=== PATIENT | male | born 1975 | race Caucasian/White ===

== ENCOUNTER 2018-02-14 09:29 | Day surgery (SDC) | payer OTHER ==
[2018-02-11 13:37] VITALS: BMI 38.4
--- NOTE | 2018-02-14 07:35 | P.GSHP ---
History of Present Illness H&P Date: 02/14/18 CHIEF COMPLAINT: Ventral hernia HISTORY OF PRESENT ILLNESS: The patient is a 42-year-old male who presents with a history of swelling and pain along the abdomen from a hernia. Now he presents for surgical intervention. PAST MEDICAL HISTORY: Please see list. PAST SURGICAL HISTORY: Please see list. MEDICATIONS: Please see list. ALLERGIES: Please see list. SOCIAL HISTORY: No illicit drug use FAMILY HISTORY: No reports of Crohn disease or ulcerative colitis. REVIEW OF ORGAN SYSTEMS: CONSTITUTIONAL: No reports of fevers or chills. No reports of weight loss despite prior attempts. GI: Denies any blood in stools or constipation. PHYSICAL EXAM: VITAL SIGNS: Stable GENERAL: Well-developed pleasant male in no acute distress. HEENT: No scleral icterus. Extraocular movements grossly intact. Moist buccal mucosa. NECK: Supple without lymphadenopathy. CHEST: Unlabored respirations. Equal bilateral excursions. CARDIOVASCULAR: Regular rate and rhythm. Distal 2+ pulses. ABDOMEN: Soft, nondistended. Palpable defect of the abdomen. No peritoneal signs. MUSCULOSKELETAL: No clubbing, cyanosis, or edema. ASSESSMENT: 1. Ventral hernia PLAN: 1. Recommend proceeding with robotic ventral hernia repair with mesh. 2. Benefits and risks of surgical intervention was discussed including possibility of open technique. 3. DVT prophylaxis. 4. Antibiotic prophylaxis. 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 History of Any Multi-Drug Resistant Organisms: None Reported Past Surgical History: Orthopedic Surgery Additional Past Surgical History / Comment(s): 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 disease Past Anesthesia/Blood Transfusion Reactions: No Reported Reaction Smoking Status: Current some day smoker - Past Family History Mother Family Medical History: No Reported History Medications and Allergies Home Medications Medication Instructions Recorded Confirmed Type No Known Home Medications 02/11/18 02/11/18 History Allergies Allergy/AdvReac Type Severity Reaction Status Date / Time No Known Allergies Allergy Verified 02/11/18 13:31
[~2018-02-14 09:29] MED LIST: DEXAMETHASONE SOD PHOSPHATE 10 MG/ML 1 ML VIAL IV ONE; HEPARIN SODIUM,PORCINE 5,000 UNIT/ML 1 ML VIAL SQ ONE; LACTATED RINGERS 1,000 ML IV SCH; MIDAZOLAM 2 MG/2 ML VIAL IV PRN; ONDANSETRON 4 MG/2 ML VIAL IVP ONE; SCOPOLAMINE 1.5MG/72HR PATCH TRANSDERM ONE; ceFAZolin IN SWFI 2 GM/20 ML SYRINGE IVP ONE; fentaNYL (PF) 50 MCG/ML 2 ML AMP IV PRN
[2018-02-14 10:00] VITALS: TEMP 97.5
[2018-02-14] MEDS ORDERED: LIDOCAINE 1% 20 ML VIAL (10MG/ML) FOR IV START INTRADERMA ONE (10:23)
[2018-02-14] MEDS ORDERED: fentaNYL (PF) 50 MCG/ML 2 ML AMP IV ONE (10:30)
[2018-02-14] MEDS ORDERED: MIDAZOLAM 2 MG/2 ML VIAL IV ONE (10:30)
[2018-02-14] MEDS ORDERED: PROPOFOL 10 MG/ML 20 ML VIAL IV ONE (10:53)
[2018-02-14] MEDS ORDERED: LIDOCAINE 1% INJ 10MG/ML (20 ML MDV) ONE (10:53)
[2018-02-14] MEDS ORDERED: fentaNYL (PF) 50 MCG/ML 2 ML AMP ONE (10:53)
[2018-02-14] MEDS ORDERED: ROPIVACAINE 5 MG/ML 30 ML VIAL ONE (10:53)
[2018-02-14] MEDS ORDERED: ROCURONIUM BROMIDE 10 MG/ML 10 ML VIAL IV ONE (10:53)
[2018-02-14] MEDS ORDERED: GLYCOPYRROLATE 0.2 MG/ML 2 ML VIAL ONE (10:53)
[2018-02-14] MEDS ORDERED: MIDAZOLAM 2 MG/2 ML VIAL ONE (10:53)
[2018-02-14] MEDS ORDERED: NEOSTIGMINE 1 MG/ML 10 ML VIAL ONE (10:53)
[2018-02-14] MEDS ORDERED: KETOROLAC 30 MG/ML 1 ML VIAL ONE (10:53)
[2018-02-14] MEDS ORDERED: SUCCINYLCHOLINE CHLORIDE 100 MG/5 ML SYR IV ONE (10:53)
[2018-02-14] MEDS ORDERED: BUPIVACAIN-EPI 0.5%-1:200,000 30 ML VIAL SQ ONE (11:18)
--- NOTE | 2018-02-14 12:12 | P.OP ---
Date of Procedure: 02/14/18 Description of Procedure: SURGEON: YUMIKO GARCIA MD PREOPERATIVE DIAGNOSES: 1. Initial ventral hernia 2. Morbid obesity due to excess calories, BMI 38.4 3. History of chronic tobacco use POSTOPERATIVE DIAGNOSES: 1. Initial ventral hernia, incarcerated, 2 cm 2. Morbid obesity due to excess calories, BMI 38.4 3. History of chronic tobacco use OPERATION: 1. Robotic-assisted daVinci Xi laparoscopic repair of initial incarcerated incisional ventral hernia 2 cm with fascial imbrication 3 without mesh ANESTHESIA: General with local ESTIMATED BLOOD LOSS: 5 mL. SPECIMENS: Incarcerated umbilical hernia COMPLICATIONS: None. Operative Findings: 1. Incarcerated umbilical hernia with omentum, 2 cm reduced 2. Console time 19 minutes INDICATIONS: The patient is a 42-year-old male who presents with ventral hernia of the umbilicus. Surgical intervention with laparoscopic versus robotic and open techniques were reviewed. Placement of mesh was also reviewed. Benefits and risks were thoroughly described. Informed consent was obtained. DESCRIPTION OF PROCEDURE: The patient was brought into the operating room and laid in supine position. After general induction, the abdomen had been prepped and draped in standard sterile fashion. Ioban draping was also placed. Prior to incision, a timeout protocol was confirmed with surgical team regarding the patient's name including procedures to be performed. The robot was primed prior to the procedure. A field block using local anesthetis was placed along hernia site including the proposed port sites. Initial incision was made with an #11 blade along the left upper quadrant. A 0 degree 5 mm laparoscopic trocar entry was performed. Diagnostic laparoscopy demonstrated incarcerated umbilical hernia involving omentum A three 8 mm trocars were placed along the right lateral abdominal wall. Placements of the ports were 20 cm from the target anatomy and 10 cm apart. The da Madie XI robot was previously primed, prepped and draped then docked along the right side of the patient. I then sat at the robot Da Madie XI console where working arms of the robot including Bovie cautery connected to robotic scissors, vessel sealer and graspers placed by the cashier assistant. The fascia was cleaned of peritoneal fat of the hernia site. Next, hemostasis was checked with cautery. The hernia defect was oversewn using #1 StrataFix with fascial imbrication 3. A final endoscopic imaging was obtained. All instruments and pneumoperitoneum were evacuated from the abdominal cavity. The da Madie XI robot was undocked from the patient. I re-scrubbed into the case for closure of incisions. The incisions were reapproximated using 4-0 Monocryl in an interrupted subcuticular fashion. Liquid glue was applied to the skin. At the end of the procedure, needle, sponge, and instrument count had been verified correct by furniture technician. The patient was taken to the postanesthesia care unit in stable condition with abdominal binder. Plan - Discharge Summary New Discharge Prescriptions: No Action No Known Home Medications Discharge Medication List No Known Home Medications 02/11/18 [History]
[2018-02-14] MEDS ORDERED: HYDROmorphone 1 MG/ML 1 ML SYRINGE IVP ONE ×2 (12:51→13:00)
[2018-02-14] MEDS ORDERED: LACTATED RINGERS 1,000 ML IV ONE (13:11)
[2018-02-14 13:31] VITALS: RESP 16
[2018-02-14 14:26] VITALS: BP 134/62; PULSE 71
--- NOTE | 2018-02-14 14:56 | P.ONQ ---
Anesthesiology Proc Note - PNB - Peripheral Nerve Block Performed Bilateral Rectus Abdominis Single Time Out Performed: Yes Procedure Start Time: : Procedure Stop Time: :30 Indication: Acute Post-Operative Pain, Requested by physician Specifically requested for management of pain by DrJason: Verónica Abraham Sedation Type: Sedate with meaningful contact maintained Preparation: Sterile Prep Position: Supine Catheter: None Needle Types: On-Q Needle Size: 100mm (4") Needle Gauge: 20 Technique: Ultrasound Injectate: 0.5% Ropivacaine (see comment for volume) (30ml of ropivicaine plus 10cc of sterile water) Blood Aspirated: No Pain Paresthesia on Injection Noted: No Resistance on Injection: Normal Events: Uneventful and Well Tolerated
== END 2018-02-14 15:08 | disposition home or self-care (01) ==
LOC: OR 09:29
PROVIDERS: ATTEND Surgery Plastic and Reconstructive Surgery
DX: K43.6 Other and unspecified ventral hernia with obstruction, without gangrene (principal); K42.0 Umbilical hernia with obstruction, without gangrene; E66.01 Morbid (severe) obesity due to excess calories; Z68.38 Body mass index [BMI] 38.0-38.9, adult; F17.210 Nicotine dependence, cigarettes, uncomplicated
CPT/HCPCS: 88302; 49653; 64488; J2250; J1644; J1100; J2710; J2405; J2001; J3010; J1885; J1170; J2795; J0330; J2704; J0690

== ENCOUNTER → 2022-09-04 | Outpatient (CLI) | payer OTHER ==
--- NOTE | 2022-09-04 10:44 | CT ---
EXAMINATION TYPE: CT angio chest DATE OF EXAM: 09/04/2022 10:16 AM COMPARISON: HISTORY: Aneurysm of thoracic aorta without rupture CT DLP: 1519.8 mGycm Automated exposure control for dose reduction was used. CONTRAST: CTA scan of the thorax is performed without and with IV Contrast, patient injected with 100 mL of Iso vicenta 370, pulmonary embolism protocol. . FINDINGS: LUNGS: The lungs are grossly clear, there is no concerning parenchymal mass or nodule identified. T here is no pleural effusion or pneumothorax seen. The tracheobronchial tree is patent. MEDIASTINUM: There is satisfactory enhancement of the pulmonary artery and its branches, there is no CT evidence for pulmonary embolism. There are no greater than 1 cm hilar or mediastinal lymph nodes. The heart is markedly enlarged. There is maximal measurement of the aortic root proximal ascending a dionte 4.4 cm x 4.7 cm. There is a prominent origin to the left main coronary artery. Aortic arch and d escending thoracic aorta normal caliber. There is minimal calcification the level of the aortic valve and along the aortic arch. There is a trace of pericardial fluid. OTHER: Hypertrophic and degenerative changes of the spine. There is a trace of gynecomastia. Questio n tiny gallstone partially included in the [id number]. IMPRESSION: 1. There is aneurysmal dilation of the proximal ascending aorta measuring a maximal dimension of 4.4 x 4.7 cm. 2. Marked cardiomegaly
== END | disposition home or self-care (01) ==
LOC: RADCTMAIN 09:36
PROVIDERS: ATTEND Family Medicine
DX: I71.21 Aneurysm of the ascending aorta, without rupture (principal); I51.7 Cardiomegaly
CPT/HCPCS: 71275; Q9967

== ENCOUNTER → 2022-10-18 | Outpatient (CLI) | payer OTHER | END | disposition home or self-care (01) | LOC: LABWHC1 10:09 | PROVIDERS: ATTEND Physician Assistant Medical | DX: Z53.9 Procedure and treatment not carried out, unspecified reason (principal) ==

== ENCOUNTER → 2022-10-18 | Outpatient (CLI) | payer OTHER ==
[2022-10-18 15:44] LABS: African American GFR (CKD) 92.2 (60.0-200.0); Albumin 4.3 g/dL (3.8-4.9); Albumin/Globulin Ratio 1.95 (1.60-3.17); Anion Gap 11.9 mmol/L (10.00-18.00); BUN/Creat Ratio 22.09 Ratio (12.00-20.00); Blood Urea Nitrogen 24.3 mg/dL (9.0-27.0); Calcium 9.7 mg/dL (8.7-10.3); Carbon Dioxide 25.1 mmol/L (20.0-27.5); Globulin 2.2 g/dL (1.6-3.3); HDL Cholesterol 26.5 mg/dL (40.00-60.00); LDL Cholesterol,Calculated 28.5 mg/dL (0.0-131.0); Non-African American GFR(CKD) 79.5 (60.0-200.0); Potassium 4.3 mmol/L (3.5-5.5); Total Bilirubin 0.3 mg/dL (0.30-1.20); Total Protein 6.5 g/dL (6.2-8.2)
[2022-10-18 15:57] LABS: Chol/HDL Ratio 5.09 Ratio; LDL Cholesterol,Direct Reflex 76.8 mg/dL (0.00-129.00)
== END | disposition home or self-care (01) ==
LOC: LABWHC1 10:05
PROVIDERS: ATTEND Internal Medicine Interventional Cardiology
DX: I42.8 Other cardiomyopathies (principal); E78.2 Mixed hyperlipidemia
CPT/HCPCS: 36415; 80053; 80061; 83721; 83880

== ENCOUNTER → 2022-11-08 | Outpatient (CLI) | payer OTHER ==
--- NOTE | 2022-11-09 06:27 | XR ---
EXAMINATION TYPE: XR lumbosacral spine min 4V DATE OF EXAM: 11/08/2022 CLINICAL HISTORY: Chronic low back pain into bilateral lower extremities. TECHNIQUE: Frontal, lateral, and oblique images of the lumbar spine are obtained. COMPARISON: None FINDINGS: There are 5 lumbar type vertebral bodies identified. There is spina bifida defect at S1 le vernell. The lumbar spine shows satisfactory alignment without evidence of acute fracture or dislocation. Vertebral body heights and disk space heights are within normal limits. The oblique images appear within normal limits. The overlying soft tissue appears unremarkable. IMPRESSION: As above.
--- NOTE | 2022-11-09 06:32 | XR ---
EXAMINATION TYPE: XR Hip Bilateral and AP pelvis DATE OF EXAM: 11/08/2022 COMPARISON: NONE HISTORY: Pelvic pain radiates into bilateral hips. TECHNIQUE: A single AP view of the pelvis is obtained. Two views of the bilateral hips are obtained. FINDINGS: There is no acute fracture/dislocation evident in the pelvis. The sacroiliac joints appea r symmetric and unremarkable. Pubic symphysis is intact. The overlying soft tissue appears unremarkab le. Two views of bilateral hip show no acute fracture or dislocation. No focal lytic or sclerotic lesion seen in the proximal femurs bilaterally. Right hip shows mild axial joint space loss . Left hip show s moderate axial joint space loss. There is deformity of the left femoral head with loss of spherical shape. There is deformity of the proximal left femur with curvilinear alignment or coxa varus angula tion. The overlying soft tissue is unremarkable bilaterally. 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
== END | disposition home or self-care (01) ==
LOC: RADXRMAIN 16:06
PROVIDERS: ATTEND Internal Medicine Rheumatology
DX: M21.952 Unspecified acquired deformity of left thigh (principal); Q05.8 Sacral spina bifida without hydrocephalus; M54.50 Low back pain, unspecified; G89.29 Other chronic pain
CPT/HCPCS: 72110; 73521

== ENCOUNTER 2023-01-03 19:48 | Emergency (ER) | payer OTHER ==
[2023-01-03 20:14] VITALS: BP 122/71; PULSE 75; RESP 18; TEMP 98.7
[2023-01-03] MEDS ORDERED: LIDOCAINE 1% INJ 10MG/ML (20 ML MDV) SQ ONE (21:04)
[2023-01-03] MEDS ORDERED: CEPHALEXIN 500 MG CAP PO STA (21:05)
[2023-01-03] MEDS ORDERED: KETOROLAC 15 MG/ML 1 ML VIAL IM STA (21:05)
--- NOTE | 2023-01-03 22:13 | ED ---
Animal Bite HPI - General Chief Complaint: Animal Bite Stated Complaint: Bit by Dog Time Seen by Provider: 01/03/23 20:25 Source: patient Mode of arrival: ambulatory Limitations: no limitations - History of Present Illness Initial Comments: Patient is a 47 year old male who presents to the emergency department for laceration. Patient was bit in his right testicle by his dog today. He reports mild pain. No issues with urination. Tetanus is up-to-date. - Related Data Previous Rx's Medication Instructions Recorded Albuterol Inhaler [Ventolin Hfa 2 puff INHALATION RT-QID PRN each 08/24/22 Inhaler] Aspirin 81 mg PO DAILY #30 tab 08/24/22 Atorvastatin [Lipitor] 20 mg PO HS #30 tab 08/24/22 Dapagliflozin Propanediol [Farxiga] 10 mg PO DAILY #60 tab 08/24/22 Furosemide [Lasix] 40 mg PO DAILY #30 tab 08/24/22 Sacubitril/Valsartan [Entresto 24 1 each PO BID #60 tab 08/24/22 mg-26 mg Tablet] Spironolactone [Aldactone] 25 mg PO DAILY #30 tab 08/24/22 carvediloL [Coreg] 3.125 mg PO BID-W/MEALS #60 tab 08/24/22 Cephalexin [Keflex] 500 mg PO Q6HR #28 cap 01/03/23 Ibuprofen [Motrin] 800 mg PO Q8HR PRN #30 tab 01/03/23 Allergies Allergy/AdvReac Type Severity Reaction Status Date / Time No Known Allergies Allergy Verified 01/03/23 20:14 Review of Systems ROS Statement: Those systems with pertinent positive or pertinent negative responses have been documented in the HPI. ROS Other: All systems not noted in ROS Statement are negative. 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, enlarged heart, History of Any Multi-Drug Resistant Organisms: None Reported Past Surgical History: Orthopedic Surgery Additional Past Surgical History / Comment(s): 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 disease Past Anesthesia/Blood Transfusion Reactions: No Reported Reaction Past Psychological History: No Psychological Hx Reported Smoking Status: Never smoker Past Alcohol Use History: None Reported Past Drug Use History: None Reported - Past Family History Mother Family Medical History: Coronary Artery Disease (CAD) General Exam Limitations: no limitations General appearance: alert, in no apparent distress Respiratory exam: Present: normal lung sounds bilaterally. Absent: respiratory distress, wheezes, rales, rhonchi, stridor Cardiovascular Exam: Present: regular rate, normal rhythm, normal heart sounds. Absent: systolic murmur, diastolic murmur, rubs, gallop, clicks exam: Present: other (flap like laceration right scrotal sac 2 cm ) Neurological exam: Present: alert Skin exam: Present: warm, dry, intact, normal color. Absent: rash Course Vital Signs 01/03/23 20:11 Temperature 98.7 F Pulse Rate 75 Respiratory 18 Rate Blood Pressure 122/71 O2 Sat by Pulse 97 Oximetry Procedures - Laceration Laceration #1 Indication: laceration Site: other Anesthetic Used: lidocaine 1% Pre-repair: wound explored Type of Sutures: nylon Size of Sutures: 5-0 Number of Sutures: 4 Technique: simple, interrupted Patient Tolerated Procedure: well, no complications Medical Decision Making - Medical Decision Making Was pt. sent in by a medical professional or institution (Dr. PA, TETRYL BOILING TUB OPERATOR, urgent care, hospital, or [place] health care facility...) When possible be specific @ -No Did you speak to anyone other than the patient for history (EMS, parent, family, police, friend...)? What history was obtained from this source @ -No Did you review nursing and triage notes (agree or disagree)? Why? @ -I reviewed and agree with nursing and triage notes Were old charts reviewed (outside hosp., previous admission, EMS record, old EKG, old radiological studies, urgent care reports/EKG's, [place] health care facility records)? Report findings @ -No old charts were reviewed Differential Diagnosis (chest pain, altered mental status, abdominal pain women, abdominal pain men, vaginal bleeding, weakness, fever, dyspnea, syncope, headache, dizziness, GI bleed, back pain, seizure, CVA, palpatations, mental health)? @ -Laceration, abrasion, puncture wound. This list is not meant to be all- inclusive EKG interpreted by me (3pts min.). @ -As above X-rays interpreted by me (1pt min.). @ -None done CT interpreted by me (1pt min.). @ -None done U/S interpreted by me (1pt. min.). @ -None done What testing was considered but not performed or refused? (CT, X-rays, U/S, labs)? Why? @ -None What meds were considered but not given or refused? Why? @ -None Did you discuss the management of the patient with other professionals (professionals i.e. , PA, TETRY[employer] BOILING TUB OPERATOR, lab, RT, psych nurse, professor of social work, supervising appraiser, teacher, property disposal officer, family independence case manager)? Give summary @ -[No] Was smoking cessation discussed for >3mins.? @ -[No] Was critical care preformed (if so, how long)? @ -[No] Were there social determinants of health that impacted care today? How? (Homelessness, low income, unemployed, alcoholism, drug addiction, transportation, low edu. Level, literacy, decrease access to med. care, longterm, rehab)? @ -[No] Was there de-escalation of care discussed even if they declined (Discuss DNR or withdrawal of care, Hospice)? DNR status @ -[No] What co-morbidities impacted this encounter? (DM, HTN, Smoking, COPD, CAD, Cancer, CVA, ARF, Chemo, Hep., AIDS, mental health diagnosis, sleep apnea, morbid obesity)? @ -[None] Was patient admitted / discharged? Hospital course, mention meds given and route, prescriptions, significant lab abnormalities, going to OR and other pertinent info. @ -Patient has flap-like laceration to right scrotal sac. The testicle is not involved. It is well approximated with 4 sutures. Tetanus update not indicated. Discussed wound care in detail. Patient placed on antibiotics prophylactically. Undiagnosed new problem with uncertain prognosis? @ -[No] Drug Therapy requiring intensive monitoring for toxicity (Heparin, Nitro, Insulin, Cardizem)? @ -[No] Were any procedures done? @ -[No] Diagnosis/symptom? @ -Laceration Acute, or Chronic, or Acute on Chronic? @ -acute Uncomplicated (without systemic symptoms) or Complicated (systemic symptoms)? @ -uncomplicated Side effects of treatment? @ -[No] Exacerbation, Progression, or Severe Exacerbation? @ -[No] Poses a threat to life or bodily function? How? (Chest pain, [place], [place], pneumonia, PE, COPD, DKA, ARF, appy, cholecystitis, CVA, Diverticulitis, Homicidal, Suicidal, threat to staff... and all critical care pts) @ -[No] Dr. Ignacio is my attending Disposition Clinical Impression: Dog bite, Laceration Disposition: HOME SELF-CARE Condition: Good Instructions (If sedation given, give patient instructions): Animal Bite (ED), Care For Your Stitches (ED), Laceration (ED) Additional Instructions: Leave wound uncovered. Keep wound clean and dry. Wash with a mild soap. Take Tylenol or anti-inflammatories such as Motrin for pain. Follow-up with primary care provider in 1-2 days. Return for suture removal in 7-10 days. Report back to the emergency department if you experience new, concerning, or worsening symptoms. Prescriptions: Cephalexin [Keflex] 500 mg PO Q6HR #28 cap Ibuprofen [Motrin] 800 mg PO Q8HR PRN #30 tab PRN Reason: Pain Is patient prescribed a controlled substance at d/c from ED?: No Referrals: Otis Garcia MD [Primary Care Provider] - 1-2 days
== END 2023-01-03 22:27 | disposition home or self-care (01) ==
LOC: EC 19:48
DX: S31.31XA Laceration without foreign body of scrotum and testes, initial encounter (principal); I50.9 Heart failure, unspecified; W54.0XXA Bitten by dog, initial encounter
CPT/HCPCS: 99283; 96372; 55100; J2001; J1885

== ENCOUNTER 2023-01-09 22:49 | Observation (INO) | payer OTHER ==
[2023-01-09] MEDS ORDERED: IBUPROFEN 400 MG TAB PO PRN (23:40)
[2023-01-09] MEDS ORDERED: KETOROLAC 15 MG/ML 1 ML VIAL IVP PRN (23:40)
[2023-01-09] MEDS ORDERED: MORPHINE SULFATE 4 MG/ML SYRINGE IV PRN (23:40)
[2023-01-09] MEDS ORDERED: AMPICILLIN-SULBACTAM 3 GM in SODIUM CHLORIDE 0.9% 100 ML IVPB STA (23:40)
[2023-01-09] MEDS ORDERED: NALOXONE 0.4 MG/ML 1 ML VIAL IV PRN (23:40)
--- NOTE | 2023-01-09 23:40 | ED ---
Skin/Abscess/FB HPI - General Chief complaint: Skin/Abscess/Foreign Body Stated complaint: Cellulitis right hand, swelling Time Seen by Provider: 01/09/23 23:07 Source: patient Mode of arrival: ambulatory Limitations: no limitations - History of Present Illness Initial comments: 47-year-old male presenting with chief complaint of pain and swelling to the right hand. Patient was bitten by his dog yesterday. He states that he was given a shot of Rocephin at the doctor's office and started on amoxicillin, he is unsure if it is really augmentin. Patient tells me he was also bitten on the same hand by the same dog last week. Today he noticed a significant increase in the swelling which is also spreading up the hand and into the wrist. He is having difficulty straightening the fingers. No numbness or tingling. No fevers or chills. No nausea or vomiting. Patient had a CT of the hand today ordered by his PCP which showed signs of cellulitis as well as subcutaneous air consistent with recent dog bite. - Related Data Previous Rx's Medication Instructions Recorded Albuterol Inhaler [Ventolin Hfa 2 puff INHALATION RT-QID PRN each 08/24/22 Inhaler] Aspirin 81 mg PO DAILY #30 tab 08/24/22 Atorvastatin [Lipitor] 20 mg PO HS #30 tab 08/24/22 Dapagliflozin Propanediol [Farxiga] 10 mg PO DAILY #60 tab 08/24/22 Furosemide [Lasix] 40 mg PO DAILY #30 tab 08/24/22 Sacubitril/Valsartan [Entresto 24 1 each PO BID #60 tab 08/24/22 mg-26 mg Tablet] Spironolactone [Aldactone] 25 mg PO DAILY #30 tab 08/24/22 carvediloL [Coreg] 3.125 mg PO BID-W/MEALS #60 tab 08/24/22 Cephalexin [Keflex] 500 mg PO Q6HR #28 cap 01/03/23 Ibuprofen [Motrin] 800 mg PO Q8HR PRN #30 tab 01/03/23 Allergies Allergy/AdvReac Type Severity Reaction Status Date / Time No Known Allergies Allergy Verified 01/09/23 23:06 Review of Systems ROS Statement: Those systems with pertinent positive or pertinent negative responses have been documented in the HPI. ROS Other: All systems not noted in ROS Statement are negative. 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, enlarged heart, History of Any Multi-Drug Resistant Organisms: None Reported Past Surgical History: Orthopedic Surgery Additional Past Surgical History / Comment(s): 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 disease Past Anesthesia/Blood Transfusion Reactions: No Reported Reaction Past Psychological History: No Psychological Hx Reported Smoking Status: Never smoker Past Alcohol Use History: None Reported Past Drug Use History: None Reported - Past Family History Mother Family Medical History: Coronary Artery Disease (CAD) General Exam Limitations: no limitations General appearance: alert, in no apparent distress Head exam: Present: atraumatic, normocephalic, normal inspection Eye exam: Present: normal appearance Neck exam: Present: normal inspection, full ROM Respiratory exam: Present: normal lung sounds bilaterally. Absent: respiratory distress, wheezes, rales, rhonchi, stridor Cardiovascular Exam: Present: regular rate, normal rhythm, normal heart sounds. Absent: systolic murmur, diastolic murmur, rubs, gallop, clicks Right Hand Wrist exam: Present: tenderness, swelling, abrasion. Absent: full ROM Neurological exam: Present: alert, oriented X3, CN II-XII intact Psychiatric exam: Present: normal affect, normal mood Skin exam: Present: warm, dry, other (There are healing puncture wounds across the right hand) Course Vital Signs 01/09/23 23:02 Temperature 98.1 F Pulse Rate 65 Respiratory 22 Rate Blood Pressure 123/67 O2 Sat by Pulse 96 Oximetry Medical Decision Making - Medical Decision Making Was pt. sent in by a medical professional or institution (Dr. PA, CALL CENTER OPERATOR, urgent care, hospital, or residential...) When possible be specific @ -Advised to come in by his PCP Did you speak to anyone other than the patient for history (EMS, parent, family, police, friend...)? What history was obtained from this source @ -No Did you review nursing and triage notes (agree or disagree)? Why? @ -I reviewed and agree with nursing and triage notes Were old charts reviewed (outside hosp., previous admission, EMS record, old EKG, old radiological studies, urgent care reports/EKG's, residential records)? Report findings @ -Patient had an outpatient CT of the hand performed today, showed signs of cellulitis and subcutaneous air consistent with dog bite Differential Diagnosis (chest pain, altered mental status, abdominal pain women, abdominal pain men, vaginal bleeding, weakness, fever, dyspnea, syncope, headache, dizziness, GI bleed, back pain, seizure, CVA, palpatations, mental health, musculoskeletal)? @ -Differential Musculoskeletal Muscular strain, contusion, ligament sprain, fracture, arthritis, septic arthritis, bursitis, cellulitis, muscle spasm, nerve compression, DVT, arterial occlusion, herpes zoster, electrolyte abnormality, tumor.... This is not meant to be in all inclusive list EKG interpreted by me (3pts min.). @ -As above X-rays interpreted by me (1pt min.). @ -None done CT interpreted by me (1pt min.). @ -None done U/S interpreted by me (1pt. min.). @ -None done What testing was considered but not performed or refused? (CT, X-rays, U/S, labs)? Why? @ -None What meds were considered but not given or refused? Why? @ -None Did you discuss the management of the patient with other professionals (professionals i.e. , PA, CALL CENTER OPERATOR, lab, RT, psych nurse, manager social work, nurse substance abuse, teacher, bsa/aml compliance officer, heel caser)? Give summary @ -No Was smoking cessation discussed for >3mins.? @ -No Was critical care preformed (if so, how long)? @ -No Were there social determinants of health that impacted care today? How? (Homelessness, low income, unemployed, alcoholism, drug addiction, transportation, low edu. Level, literacy, decrease access to med. care, group home, rehab)? @ -No Was there de-escalation of care discussed even if they declined (Discuss DNR or withdrawal of care, Hospice)? DNR status @ -No What co-morbidities impacted this encounter? (DM, HTN, Smoking, COPD, CAD, Cancer, CVA, ARF, Chemo, Hep., AIDS, mental health diagnosis, sleep apnea, morbid obesity)? @ -None Was patient admitted / discharged? Hospital course, mention meds given and route, prescriptions, significant lab abnormalities, going to OR and other pertinent info. @ -47-year-old male presenting with chief complaint of pain and swelling to the right hand after a dog bite that occurred yesterday. Patient states that throughout the day he had significant increase in swelling and pain, pain and swelling is spreading up into his wrist and he is having difficulty straightening the fingers. He is on what is assumed to be Augmentin although he is not sure. Given the significant change in swelling throughout the day patient will be admitted for dog bite cellulitis to the hand for IV antibiotics and evaluation by hand surgery. Patient is agreeable with this plan. I discussed this case with my attending Dr. Flood. Undiagnosed new problem with uncertain prognosis? @ -No Drug Therapy requiring intensive monitoring for toxicity (Heparin, Nitro, Insulin, Cardizem)? @ -No Were any procedures done? @ -No Diagnosis/symptom? @ -Dog bite cellulitis Acute, or Chronic, or Acute on Chronic? @ -Acute Uncomplicated (without systemic symptoms) or Complicated (systemic symptoms)? @ -Complicated Side effects of treatment? @ -No Exacerbation, Progression, or Severe Exacerbation? @ -No Poses a threat to life or bodily function? How? (Chest pain, USA, OR, pneumonia, PE, COPD, DKA, ARF, appy, cholecystitis, CVA, Diverticulitis, Homicidal, Suicidal, threat to staff... and all critical care pts) @ -Poses threat to hand function if proper treatment is not undergone Disposition Clinical Impression: Cellulitis, Dog bite Disposition: ADMITTED IP TO THIS [facility] Condition: Fair Referrals: Otis Garcia MD [Primary Care Provider] - 1-2 days Time of Disposition: 23:39 Decision to Admit Reason: Admit from EC Decision Date: 01/09/23 Decision Time: 23:39
[2023-01-10 00:28] LABS: Basophils % (A) 0 %; Eosinophils # (A) 0.1 k/uL (0-0.7); Eosinophils % (A) 2 %; HCT 44.8 % (39.0-53.0); HGB 15.2 gm/dL (13.0-17.5); Lymphocytes # (A) 2.8 k/uL (1.0-4.8); Lymphocytes % (A) 31 %; MCH 30.9 pg (25.0-35.0); MCHC 33.9 g/dL (31.0-37.0); MCV 91.3 fL (80.0-100.0); Mean Platelet Volume 9.3; Monocytes # (A) 0.6 k/uL (0-1.0); Monocytes % (A) 7 %; Neutrophils # (A) 5.3 k/uL (1.3-7.7); Neutrophils % (A) 59 %; Platelet Count 240 k/uL (150-450); RDW 13.9 % (11.5-15.5)
[2023-01-10 00:29] LABS: ALT 30 U/L (4-49); AST 31 U/L (17-59); African American GFR (CKD) >90 (>60 ml/min/1.73 sqM); Albumin 4.4 g/dL (3.5-5.0); Alkaline Phosphatase 74 U/L (38-126); Anion Gap 12 mmol/L; Blood Urea Nitrogen 21 mg/dL (9-20); Calcium 9.9 mg/dL (8.4-10.2); Carbon Dioxide 25 mmol/L (22-30); Chloride 102 mmol/L (98-107); Glucose 93 mg/dL (74-99); Non-African American GFR(CKD) 80 (>60 ml/min/1.73 sqM); Potassium 3.8 mmol/L (3.5-5.1); Sodium 139 mmol/L (137-145); Total Bilirubin 1.1 mg/dL (0.2-1.3); Total Protein 7.5 g/dL (6.3-8.2)
[2023-01-10] MEDS ORDERED: ALBUTEROL NEBULIZED 2.5 MG/3 ML INHALATION PRN (04:37)
--- NOTE | 2023-01-10 04:49 | P.HPIM ---
History of Present Illness H&P Date: 01/10/23 Chief Complaint: right hand swelling 47-year-old male with systolic congestive heart failure recently diagnosed He is coming in for right-hand swelling secondary to a PET dog bite (the dog is not rabid ) which happened 3 days ago he reports that he was evaluated by his do ctor who gave him a shot of Rocephin and amoxicillin. However he noticed that the swelling is getting worse, this is his second bite first one happened about a week ago. Today he noticed that he can't make a fist or stretches hand due to pain and swelling. He denies any fevers or chills. Denies any numbness tingling over the hand Patient knows the the animal which is a PET that's vaccinated. And currently is not rabid CAT scan was done as an outpatient confirmed possibility of cellulitis with gas- forming organism mainly over the dorsum of the hand without any underlying acute osseous abnormalities review of systems Pertinent positives as noted in HPI. All other systems were reviewed and are negative on exam Constitutional: No acute distress, conversant, pleasant Eyes: Anicteric sclerae, moist conjunctiva, Pupils equal round reactive to light ENMT: NC/AT Oropharynx clear, no erythema, or exudates Neck: Supple, no masses, or JVD No carotid bruits No thyromegaly Lungs: Clear to auscultation Clear to percussion Normal respiratory effort, no accessory muscle use Cardiovascular: Heart regular in rate and rhythm, No murmurs, gallops, or rubs No peripheral edema Abdominal: Soft Nontender, no guarding, rebound or rigidity Abdomen moving with respiration Normoactive bowel sounds No hepatomegaly, No splenomegaly No palpable mass No abdominal wall hernia noted Extremities: Right-hand swelling and tenderness nor erythema no induration multiple linear superficial wounds from bite smith over the dorsum of the hand slight warmth to the touch No digital cyanosis No clubbing Pedal pulses intact and symmetrical Radial pulses intact and symmetrical No calf tenderness Psychiatric: Alert and oriented to person, place and time Appropriate affect fair judgement Neuro Muscles Strength 5/5 in all 4 extremities Sensation to light touch grossly present throughout Cranial nerves II-XII grossly intact Lymphatics: no palpable cervical or supraclavicular lymph nodes 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, enlarged heart, aortic aunerysm History of Any Multi-Drug Resistant Organisms: None Reported Past Surgical History: Orthopedic Surgery Additional Past Surgical History / Comment(s): 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 disease Past Anesthesia/Blood Transfusion Reactions: No Reported Reaction Past Psychological History: No Psychological Hx Reported Smoking Status: Never smoker Past Alcohol Use History: None Reported Additional Past Alcohol Use History / Comment(s): smokes 1/2 PPD, has smoked since age 18 Past Drug Use History: None Reported - Past Family History Mother Family Medical History: Coronary Artery Disease (CAD) Medications and Allergies Home Medications Medication Instructions Recorded Confirmed Type Albuterol Inhaler [Ventolin Hfa 2 puff INHALATION RT-QID PRN each 08/24/22 Rx Inhaler] Aspirin 81 mg PO DAILY #30 tab 08/24/22 Rx Atorvastatin [Lipitor] 20 mg PO HS #30 tab 08/24/22 Rx Dapagliflozin Propanediol [Farxiga] 10 mg PO DAILY #60 tab 08/24/22 Rx Furosemide [Lasix] 40 mg PO DAILY #30 tab 08/24/22 Rx Sacubitril/Valsartan [Entresto 24 1 each PO BID #60 tab 08/24/22 Rx mg-26 mg Tablet] Spironolactone [Aldactone] 25 mg PO DAILY #30 tab 08/24/22 Rx carvediloL [Coreg] 3.125 mg PO BID-W/MEALS #60 tab 08/24/22 Rx Cephalexin [Keflex] 500 mg PO Q6HR #28 cap 01/03/23 Rx Ibuprofen [Motrin] 800 mg PO Q8HR PRN #30 tab 01/03/23 Rx Allergies Allergy/AdvReac Type Severity Reaction Status Date / Time No Known Allergies Allergy Verified 01/09/23 23:06 Physical Exam Vitals: Vital Signs Temp Pulse Pulse Resp BP BP Pulse Ox 01/10/23 02:56 97.7 F 61 15 174/62 94 L 01/10/23 02:15 97.1 F L 54 L 18 114/51 98 01/09/23 23:02 98.1 F 65 22 123/67 96 Intake and Output 01/09/23 01/09/23 01/10/23 14:59 22:59 06:59 Other: Weight 127.006 kg Results CBC & Chem 7: 01/09/23 23:40 01/09/23 23:40 Labs: Abnormal Lab Results - Last 24 Hours (Table) 01/09/23 Range/Units 23:40 BUN 21 H (9-20) mg/dL Assessment and Plan Assessment: 47-year-old male with recently diagnosed systolic congestive heart failure coming in due to swelling over the right hand post dog bite, I discussed the case with the ED doctor and accepted the admission for IV antibiotics due to right hand cellulitis Acute cellulitis of the right hand secondary to dog bite Failed outpatient therapy Follow-up cultures Initiate patient on Unasyn 3 g IV piggyback every 6 hours Tylenol for fevers when necessary 650 mg by mouth Monitor vital signs Hand surgery consult Systolic congestive heart failure compensated Continue with statin, aspirin Continue with Coreg Continue with entresto Full code DVT prophylaxis heparin subcu 3 times a day
[2023-01-10] MEDS: carvediloL 3.125 MG TAB PO SCH ×4 (06:31→17:50)
[2023-01-10] MEDS: AMPICILLIN-SULBACTAM 3 GM in SODIUM CHLORIDE 0.9% 100 ML IVPB SCH ×4 (06:31→23:51)
[2023-01-10] MEDS: SPIRONOLACTONE 25 MG TAB PO SCH (11:48)
[2023-01-10] MEDS: ASPIRIN 81 MG PO SCH (11:48)
[2023-01-10] MEDS: HEPARIN SODIUM,PORCINE/PF 5,000 UNIT/0.5 ML SYRINGE SQ SCH ×3 (11:48→23:39)
[2023-01-10] MEDS: SACUBITRIL/VALSARTAN 24 MG-26 MG TABLET PO SCH ×2 (11:49→20:22)
--- NOTE | 2023-01-10 12:57 | P.CNOR ---
History of Present Illness - HPI Consult date: 01/10/23 Requesting physician: Yuko Gama Consult reason: other (dog bite cellulitis to hand) History of present illness: Patient is a 47-year-old male who presented to the hospital yesterday with right hand swelling secondary to his own dog biting his hand. Patient was seen at bedside this morning and said that his dog bit him a few days ago when he was playing with him. Patient says he did go into see his primary care provider the day after happened and he was given a shot of Rocephin. Patient noticed that the day after he went to his primary care doctor is hand began to swell more and the pain began to increase. Patient then contact primary care doctor who referred him to the emergency department. Patient says he is currently having some pain in the right hand, however it is tolerable. Patient says since he has been in the hospital and antibiotics he saidthe swelling and redness seems to have gone down. Patient says that his dog is vaccinated. Patient denies any fever/nausea/vomiting/chills. Patient denies chest pain, fever, shortness of breath, nausea, vomiting, change in vision, possible/bladder control. 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, enlarged heart, aortic aunerysm History of Any Multi-Drug Resistant Organisms: None Reported Past Surgical History: Orthopedic Surgery Additional Past Surgical History / Comment(s): 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 disease Past Anesthesia/Blood Transfusion Reactions: No Reported Reaction Past Psychological History: No Psychological Hx Reported Smoking Status: Never smoker Past Alcohol Use History: None Reported Additional Past Alcohol Use History / Comment(s): smokes 1/2 PPD, has smoked since age 18 Past Drug Use History: None Reported - Past Family History Mother Family Medical History: Coronary Artery Disease (CAD) Medications and Allergies Home Medications Medication Instructions Recorded Confirmed Type Aspirin 81 mg PO DAILY #30 tab 08/24/22 01/10/23 Rx Dapagliflozin Propanediol [Farxiga] 10 mg PO DAILY #60 tab 08/24/22 01/10/23 Rx Furosemide [Lasix] 40 mg PO DAILY #30 tab 08/24/22 01/10/23 Rx Spironolactone [Aldactone] 25 mg PO DAILY #30 tab 08/24/22 01/10/23 Rx carvediloL [Coreg] 3.125 mg PO BID-W/MEALS #60 tab 08/24/22 01/10/23 Rx Ibuprofen [Motrin] 800 mg PO Q8HR PRN #30 tab 01/03/23 01/10/23 Rx Amoxic-Pot Clav 875-125Mg 1 tab PO BID 01/10/23 01/10/23 History [Augmentin 875-125] Atorvastatin [Lipitor] 40 mg PO DAILY 01/10/23 01/10/23 History Cholecalciferol (Vitamin D3) 125 mcg PO DAILY 01/10/23 01/10/23 History [Vitamin D3 (125 MCG = 5,000 IU)] Gabapentin 300 mg PO BID 01/10/23 01/10/23 History Sacubitril/Valsartan [Entresto 24 1 tab PO BID 01/10/23 01/10/23 History mg-26 mg Tablet] traMADol HCL 50 mg PO Q4-6H PRN 01/10/23 01/10/23 History Allergies Allergy/AdvReac Type Severity Reaction Status Date / Time No Known Allergies Allergy Verified 01/10/23 08:15 Physical Examination Inspection: Swelling and puncture wounds present dorsum and palmar aspect of the right hand. Negative for any active drainage/fluctuance/purulence. Negative for any significant ecchymosis/erythema. Sensation: Equal, symmetric, and intact at the upper and lower extremities. Palpation: There is fair amount of TTP over dorsum and palmar aspect of hand where punture wounds are at. NTTP throughout rest of exam. Range of motion: Patient is able flex and extend digits in right upper extremity. Patient does have limited range of motion in right wrist secondary to swelling and hand. Patient has full range of motion in right elbow in flexion/extension. Motor: spragger strength 4/5 RUE. 4-/5 in resisted right wrist flexion/extension. 5/5 in resited right elbow flexion/extension Neurovascular status: Radial pulse intact, 2+. Cap refill under 3 seconds in digits of the upper extremities. Special tests: Negative Homans bilaterally. Results - Labs Labs: Abnormal Lab Results - Last 24 Hours (Table) 01/09/23 Range/Units 23:40 BUN 21 H (9-20) mg/dL H & H 01/09/23 Range/Units 23:40 Hgb 15.2 (13.0-17.5) gm/dL Hct 44.8 (39.0-53.0) % Result Diagrams: 01/09/23 23:40 01/09/23 23:40 - Diagnostic results Wrist/Hand CT: report reviewed, image reviewed (CT of hand does reveal soft tissue swelling. Negative for any fractures/abscesses.) Assessment and Plan Assessment: 1. Right hand dog bite; right hand swelling/ possible developing cellulitis Plan: 1. Right hand dog bite; right hand swelling/ possible developing cellulitis - patient stable at bedside this morning getting IV antibiotics currently. I did discuss exam findings with my attending, Judson Howell. At this time we're not recommending any emergent/urgent orthopedic surgical intervention. We are recommending continued conservative measures with antibiotics. CT scan does show soft tissue swelling in the right hand. Pain medication as needed. Recommend continued antibiotics in the outpatient setting. We do recommend patient to follow-up in the office with Dr. Roper for continued care. Patient is stable from an orthopedic standpoint for discharge home. At this time orthopedics is signing off. Please do not hesitate to contact us for any further questions. 2. Appreciate medical management 3. Pain management - toradol 4. DVT prophylaxis - aspirin; heparin 5. GI prophylaxis recs 6. PT/OT - WBAT; gentle ROM exercises 7. Appreciate consult Time with Patient: Less than 30
--- NOTE | 2023-01-10 16:49 | P.PN ---
Subjective Progress Note Date: 01/10/23 Hospital course: Patient is a very pleasant 47-year-old male with a past medical history of abdominal aortic aneurysm, chronic systolic heart failure with previously reported EF of 35%, and hypertension. He presented to the emergency department overnight secondary to right hand swelling status post his kidneys didn't by his 9-month-old pet dog. Patient reports that his dog is up-to-date on vaccinations and has received the rabies vaccination and is not rabid. Patient reports being bitten by his dog 3 days ago and being evaluated by his PCP who administered a Rocephin shot and started him on amoxicillin. Patient reports he has been taking amoxicillin as prescribed but noticed swelling and pain was worsening C came to the emergency department for evaluation. Patient underwent full evaluation in the emergency department. CBC and CMP completed and were unremarkable. Computed tomography scan was done at outpatient facility in radiology report was reviewed stating pronounced soft tissue swelling extending from the level of the carpus to the proximal phalanges with a few tiny foci of subcutaneous air possibly secondary to puncture wounds however with cellulitis unable to exclude infectious process with gas-forming organism. Physical exam: Vital signs reviewed and stable. General: Nontoxic, no distress and appears stated age. Derm: Skin warm and dry, normal coloration for ethnicity. Patient with moderate swelling of dorsal surface of right hand extending down into fingers. Head: Atraumatic, normocephalic and symmetric. Eyes: EOMs intact, no lid lag, and anicteric sclera Mouth: no lip lesions, mucus membranes moist Cardiovascular: regular rate and rhythm with normal S1S2, no murmur, positive posterior tibial pulses bilaterally, and cap refill < 2 seconds. Lungs: Respirations even, regular, and unlabored on room air. Lungs CTA bilaterally, no rhonchi, no rales, no wheezing, and no accessory muscle usage. Abdominal: soft, nontender to palpation, no guarding, no appreciable organomegaly Ext: No gross muscle atrophy, no edema, no contractures. Sensation remains intact to distal fingers. Movement of fingers limited secondary to reports of swelling and pain. Patient unable to make a fist or squeeze hand at this time. Patient able to bend wrist and elbow. Reports pain to hand with peeling of wrist. Neuro: Speech clear, face symmetrical and CN II-XII grossly intact with no noted focal neuro deficits Psych: Alert and oriented to person, place, time, and situation. Appropriate and pleasant affect. Assessment and Plan of Care: Cellulitis right hand status post dog bite -Continue IV antibiotics with Unasyn 3 g every 6 hours. -Consult placed to hand surgeon, Dr. Roper. -Symptomatic care and pain management. -Follow-up on blood cultures. -Consult placed to infectious disease, appreciate further recommendations. Chronic systolic heart failure with previously reported EF of 35% Abdominal aortic aneurysm Hypertension -Patient denies cardiac complaints, recommend patient to continue with daily cardiac medication regimen with aspirin 81 mg daily, atorvastatin 20 mg nightly, carvedilol 3.125 mg twice daily, Entresto 24/26 mg tablet, Lasix 40 mg daily, and spironolactone 25 mg daily. CODE STATUS: Full code DVT prophylaxis: Heparin Discussed with: Patient, RN, and orthopedic surgery PA Anticipated discharge date: Clinical course to determine Anticipated discharge place: Home Patient was seen independently by Nurse Pracitioner. This document was prepared using [employer] dictation software. Please allow for errors in importer or exporter, while rare they do occur. I reviewed the documentation as provided by the SARIAH above, who is the original author of this note. I agree with the documented assessment and plan, with the following changes: none Objective - Vital Signs Vital signs: Vital Signs Temp 97.6 F 01/10/23 06:39 Pulse 51 L 01/10/23 06:39 Resp 18 01/10/23 06:39 BP 126/76 01/10/23 06:39 Pulse Ox 98 01/10/23 06:39 FiO2 Intake & Output 01/09/23 01/10/23 01/10/23 18:59 06:59 18:59 Weight 127.006 kg Other: # Voids 2 - Labs CBC & Chem 7: 01/09/23 23:40 01/09/23 23:40 Labs: Abnormal Lab Results - Last 24 Hours (Table) 01/09/23 Range/Units 23:40 BUN 21 H (9-20) mg/dL
[2023-01-10] MEDS: GABAPENTIN 300 MG CAP PO SCH (20:22)
[2023-01-10] MEDS: ATORVASTATIN 20 MG TAB PO SCH (20:22)
[2023-01-11] MEDS: AMPICILLIN-SULBACTAM 3 GM in SODIUM CHLORIDE 0.9% 100 ML IVPB SCH ×4 (05:18→23:26)
[2023-01-11] MEDS: SACUBITRIL/VALSARTAN 24 MG-26 MG TABLET PO SCH ×2 (09:11→22:14)
[2023-01-11] MEDS: carvediloL 3.125 MG TAB PO SCH ×2 (09:11→17:35)
[2023-01-11] MEDS: FUROSEMIDE 40 MG TAB PO SCH (09:11)
[2023-01-11] MEDS: DAPAGLIFLOZIN PROPANEDIOL 10 MG TABLET PO SCH (09:11)
[2023-01-11] MEDS: ASPIRIN 81 MG PO SCH (09:11)
[2023-01-11] MEDS: SPIRONOLACTONE 25 MG TAB PO SCH (09:11)
[2023-01-11] MEDS: HEPARIN SODIUM,PORCINE/PF 5,000 UNIT/0.5 ML SYRINGE SQ SCH ×3 (09:13→23:26)
[2023-01-11] MEDS: GABAPENTIN 300 MG CAP PO SCH ×2 (09:15→22:14)
--- NOTE | 2023-01-11 17:49 | P.PN ---
Subjective Progress Note Date: 01/11/23 Hospital course: Patient is a very pleasant 47-year-old male with a past medical history of abdominal aortic aneurysm, chronic systolic heart failure with previously reported EF of 35%, and hypertension. He presented to the emergency department overnight secondary to right hand swelling status post his kidneys didn't by his 9-month-old pet dog. Patient reports that his dog is up-to-date on vaccinations and has received the rabies vaccination and is not rabid. Patient reports being bitten by his dog 3 days ago and being evaluated by his PCP who administered a Rocephin shot and started him on amoxicillin. Patient reports he has been taking amoxicillin as prescribed but noticed swelling and pain was worsening C came to the emergency department for evaluation. Patient underwent full evaluation in the emergency department. CBC and CMP completed and were unremarkable. Computed tomography scan was done at outpatient facility in radiology report was reviewed stating pronounced soft tissue swelling extending from the level of the carpus to the proximal phalanges with a few tiny foci of subcutaneous air possibly secondary to puncture wounds however with cellulitis unable to exclude infectious process with gas-forming organism. Physical exam: Patient seen and fully evaluated at bedside this morning. He does have improvement in swelling and range of motion with fingers able to touch first and second digit with some but remains unable to make a fist or touch ring finger to thumb more pinky finger to thumb. Patient denies having any other complaints at this time. Vital signs reviewed and stable. General: Nontoxic, no distress and appears stated age. Derm: Skin warm and dry, normal coloration for ethnicity. Patient with moderate swelling of dorsal surface of right hand extending down into fingers. Head: Atraumatic, normocephalic and symmetric. Eyes: EOMs intact, no lid lag, and anicteric sclera Mouth: no lip lesions, mucus membranes moist Cardiovascular: regular rate and rhythm with normal S1S2, no murmur, positive posterior tibial pulses bilaterally, and cap refill < 2 seconds. Lungs: Respirations even, regular, and unlabored on room air. Lungs CTA bilaterally, no rhonchi, no rales, no wheezing, and no accessory muscle usage. Abdominal: soft, nontender to palpation, no guarding, no appreciable organomegaly Ext: No gross muscle atrophy, no edema, no contractures. Sensation remains intact to distal fingers. Movement of fingers remains limited secondary to reports of swelling and pain. Patient unable to make a fist or squeeze hand at this time. Patient able to bend wrist and elbow. Neuro: Speech clear, face symmetrical and CN II-XII grossly intact with no noted focal neuro deficits Psych: Alert and oriented to person, place, time, and situation. Appropriate and pleasant affect. Assessment and Plan of Care: Cellulitis right hand status post dog bite -Continue IV antibiotics with Unasyn 3 g every 6 hours. -Orthopedic surgeon/hand surgeon, Dr. Roper is following and discussed plan of care with orthopedic surgery PA stating no plans for surgical intervention at this time. -Continue with symptomatic care and pain management. -Follow-up on final blood cultures. Currently blood culture showing no growth to date. -Infectious disease following, appreciate recommendations. Chronic systolic heart failure with previously reported EF of 35% Abdominal aortic aneurysm Hypertension -Patient denies cardiac complaints, recommend patient to continue with daily cardiac medication regimen with aspirin 81 mg daily, atorvastatin 20 mg nightly, carvedilol 3.125 mg twice daily, Entresto 24/26 mg tablet, Lasix 40 mg daily, and spironolactone 25 mg daily. Data review: -Blood culture showing no growth to date. -Vital signs stable. Blood pressure 128/81, heart rate 77, respiratory rate 16, temp 97.9F, and SpO2 of 99% on room air. CODE STATUS: Full code DVT prophylaxis: Heparin Discussed with: Patient, RN, and orthopedic surgery PA Anticipated discharge date: Clinical course to determine Anticipated discharge place: Home Patient was seen independently by Nurse Pracitioner. This document was prepared using [employer] dictation software. Please allow for errors in billing collections specialist, while rare they do occur. Abdulaziz Zamora NP rendered care for this patient independently, reviewed the findings and plan as documented in the note above. I did not physically speak with or examine the patient on this date. Objective - Vital Signs Vital signs: Vital Signs Temp 97.9 F 01/11/23 07:00 Pulse 77 01/11/23 07:00 Resp 16 01/11/23 07:00 BP 128/81 01/11/23 07:00 Pulse Ox 99 01/11/23 07:00 FiO2 Intake & Output 01/10/23 01/11/23 01/11/23 18:59 06:59 18:59 Intake Total 118 Balance 118 Intake: Oral 118 Other: # Voids 1 3 - Labs CBC & Chem 7: 01/09/23 23:40 01/09/23 23:40 Labs: Microbiology - Last 24 Hours (Table) 01/09/23 23:55 Blood Culture - Preliminary Blood 01/09/23 23:40 Blood Culture - Preliminary Blood
[2023-01-11] MEDS: ATORVASTATIN 20 MG TAB PO SCH (22:15)
--- NOTE | 2023-01-11 22:37 | P.CONS ---
History of Present Illness - Reason for Consult Consult date: 01/11/23 Cellulitis right hand status post dog bite Requesting physician: Abdulaziz Noah - Chief Complaint Right hand and wrist area swelling and pain x 2 days - History of Present Illness Patient is a 47-year-old male presenting to the hospital 2 days ago on 01/09/2023 after the patient has been bitten on his right hand by his pet dog which has been up-to-date on his vaccination bite happened 3 days before presentation to the hospital and the patient was evaluated by his primary care physician and he did receive a dose of Rocephin intramuscularly subsequently has been treated with the Augmentin patient noticed to have increasing swelling to the right wrist area with associated discomfort describing it to be more of a throbbing pain 6-7 out of 10 no radiation with worsening swelling and pain the patient presented to [facility] ER patient was started on Unasyn has been evaluated by hand surgery recommending no surgical intervention infectious he was consulted last night for further management of antibiotic therapy as of this morning the patient remains to be afebrile patient is breathing comfortably on room air denies any chest pain shortness of breath or cough no nausea vomiting abdominal pain swelling to the right hand has decreased intensity patie nt did have normal white count and patient kidney function has been normal liver exams are normal Review of Systems Positive point and negatives has been mentioned in the HPI, complete review of systems was performed and all other systems are negative 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, enlarged heart, aortic aunerysm History of Any Multi-Drug Resistant Organisms: None Reported Past Surgical History: Orthopedic Surgery Additional Past Surgical History / Comment(s): 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 disease Past Anesthesia/Blood Transfusion Reactions: No Reported Reaction Past Psychological History: No Psychological Hx Reported Smoking Status: Never smoker Past Alcohol Use History: None Reported Additional Past Alcohol Use History / Comment(s): smokes 1/2 PPD, has smoked since age 18 Past Drug Use History: None Reported - Past Family History Mother Family Medical History: Coronary Artery Disease (CAD) Medications and Allergies Home Medications Medication Instructions Recorded Confirmed Type Aspirin 81 mg PO DAILY #30 tab 08/24/22 01/10/23 Rx Dapagliflozin Propanediol [Farxiga] 10 mg PO DAILY #60 tab 08/24/22 01/10/23 Rx Furosemide [Lasix] 40 mg PO DAILY #30 tab 08/24/22 01/10/23 Rx Spironolactone [Aldactone] 25 mg PO DAILY #30 tab 08/24/22 01/10/23 Rx carvediloL [Coreg] 3.125 mg PO BID-W/MEALS #60 tab 08/24/22 01/10/23 Rx Ibuprofen [Motrin] 800 mg PO Q8HR PRN #30 tab 01/03/23 01/10/23 Rx Atorvastatin [Lipitor] 40 mg PO DAILY 01/10/23 01/10/23 History Cholecalciferol (Vitamin D3) 125 mcg PO DAILY 01/10/23 01/10/23 History [Vitamin D3 (125 MCG = 5,000 IU)] Gabapentin 300 mg PO BID 01/10/23 01/10/23 History Sacubitril/Valsartan [Entresto 24 1 tab PO BID 01/10/23 01/10/23 History mg-26 mg Tablet] traMADol HCL 50 mg PO Q4-6H PRN 01/10/23 01/10/23 History Amoxic-Pot Clav 875-125Mg 1 tab PO BID 7 Days #14 tab 01/12/23 Rx [Augmentin 875-125] Allergies Allergy/AdvReac Type Severity Reaction Status Date / Time No Known Allergies Allergy Verified 01/10/23 08:15 Physical Exam Vitals: Vital Signs Temp Pulse Resp BP Pulse Ox 01/11/23 08:00 77 16 01/11/23 07:00 97.9 F 77 16 128/81 99 01/11/23 00:00 98.0 F 58 L 15 143/86 96 01/10/23 19:19 98.4 F 64 15 125/67 97 01/10/23 14:16 98.2 F 51 L 16 119/71 97 01/10/23 14:00 51 L 16 Intake and Output 01/10/23 01/11/23 01/11/23 22:59 06:59 14:59 Intake Total 118 Balance 118 Intake: Oral 118 Other: # Voids 2 3 GENERAL DESCRIPTION: Middle-aged male lying in bed, no distress. No tachypnea or accessory muscle of respiration use. HEENT: Shows Pallor , no scleral icterus. Oral mucous membrane is dry. No pharyngeal erythema or thrush NECK: Trachea central, no thyromegaly. LUNGS: Unlabored breathing. Clear to auscultation anteriorly. No wheeze or crackle. HEART: S1, S2, regular rate and rhythm. No loud murmur ABDOMEN: Soft, no tenderness , guarding or rigidity, no organomegaly EXTREMITIES: Right wrist and dorsum of the right hand did have some swelling mildly warmth and tenderness no drainage SKIN: No rash, no masses palpable. NEUROLOGICAL: The patient is awake, alert, oriented x3, mood and affect normal. Results CBC & Chem 7: 01/09/23 23:40 01/09/23 23:40 Labs: Microbiology - Last 24 Hours (Table) 01/09/23 23:55 Blood Culture - Preliminary Blood 01/09/23 23:40 Blood Culture - Preliminary Blood Assessment and Plan (1) Cellulitis Status: Acute Code(s): L03.90 - CELLULITIS, UNSPECIFIED SNOMED Code(s): 964662926 (2) Dog bite Status: Acute Code(s): W54.0XXA - BITTEN BY DOG, INITIAL ENCOUNTER SNOMED Code(s): 561021970 Plan: 1patient presented hospital with right hand swelling and redness secondary to dog bite injury failing outpatient oral Augmentin to be more likely because of the burden of disease patient did have a CT of the right hand on 01/09/2023 with evidence of pronounced dorsal soft tissue swelling and tiny foci of subcutaneous air , with no evidence of any abscess and the patient seem to have shown clinical response to the IV Unasyn 2-patient to continue with IV Unasyn for another 24-hour and if the patient show continued Prometa will be able to finish therapy with oral Augmentin and close outpatient follow-up We will follow on clinical condition and cultures to further adjust medication if needed Thank you for this consultation we will follow the patient along with you Dictation was produced using [employer] software. please excuse any grammatical, word or spelling errors. Time with Patient: Greater than 30
[2023-01-12] MEDS: AMPICILLIN-SULBACTAM 3 GM in SODIUM CHLORIDE 0.9% 100 ML IVPB SCH ×2 (06:57→11:58)
[2023-01-12 07:46] VITALS: BP 117/75; PULSE 65; RESP 16; TEMP 97.7
[2023-01-12] MEDS: carvediloL 3.125 MG TAB PO SCH (08:36)
[2023-01-12] MEDS: DAPAGLIFLOZIN PROPANEDIOL 10 MG TABLET PO SCH (08:36)
[2023-01-12] MEDS: SACUBITRIL/VALSARTAN 24 MG-26 MG TABLET PO SCH (08:36)
[2023-01-12] MEDS: ASPIRIN 81 MG PO SCH (08:36)
[2023-01-12] MEDS: GABAPENTIN 300 MG CAP PO SCH (08:36)
[2023-01-12] MEDS: SPIRONOLACTONE 25 MG TAB PO SCH (08:36)
[2023-01-12] MEDS: HEPARIN SODIUM,PORCINE/PF 5,000 UNIT/0.5 ML SYRINGE SQ SCH (08:37)
[2023-01-12] MEDS: FUROSEMIDE 40 MG TAB PO SCH (08:37)
--- NOTE | 2023-01-12 13:02 | P.DS ---
Providers Date of admission: 01/09/23 23:49 Expected date of discharge: 01/12/23 Attending physician: Adriana Vela MD Consults: 01/09/23 23:38 Consult Physician Urgent Consulting Provider: Maverick Roper Consult Reason/Comments: dog bite cellulitis to hand Do you want consulting provider notified?: Yes, Notify in am 01/10/23 16:39 Consult Physician Routine Consulting Provider: Fab Cardona Consult Reason/Comments: cellulitis right hand s/p dog bite Do you want consulting provider notified?: Yes Primary care physician: Otis Garcia Hospital Course: Discharge Diagnosis: Cellulitis right hand status post dog bite. patient received 3 day course of IV antibiotics with vancomycin and Unasyn in the hospital and being discharged home on Augmentin 875/125 mg tablets every 12 hours for an additional 7 days to total a treatment course of 10 days for antibiotic therapy. Patient follow-up outpatient with orthopedic surgery and infectious disease. Chronic systolic heart failure with previously reported EF of 35%. Pt to continue daily cardiac medication regimen with aspirin 81 mg daily, atorvastatin 20 mg nightly, carvedilol 3.125 mg twice daily, Entresto 24/26 mg tablet, Lasix 40 mg daily, and spironolactone 25 mg daily and to follow up with cardiology as scheduled. Abdominal aortic aneurysm. Hypertension. Hospital Course: Patient is a very pleasant 47-year-old male with a past medical history of abdominal aortic aneurysm, chronic systolic heart failure with previously reported EF of 35%, and hypertension. He presented to the emergency department overnight secondary to right hand swelling status post his kidneys didn't by his 9-month-old pet dog. Patient reports that his dog is up-to-date on vaccinations and has received the rabies vaccination and is not rabid. Patient reports being bitten by his dog 3 days ago and being evaluated by his PCP who administered a Rocephin shot and started him on amoxicillin. Patient reports he has been taking amoxicillin as prescribed but noticed swelling and pain was worsening C came to the emergency department for evaluation. Patient underwent full evaluation in the emergency department. CBC and CMP completed and were unremarkable. Computed tomography scan was done at outpatient facility in radiology report was reviewed stating pronounced soft tissue swelling extending from the level of the carpus to the proximal phalanges with a few tiny foci of subcutaneous air possibly secondary to puncture wounds however with cellulitis unable to exclude infectious process with gas-forming organism. He was admitted under our services with consultation to orthopedic surgery team and infectious disease. Orthopedic hand surgeon stated no plans for surgical intervention at this time, recommend treatment of cellulitis and outpatient follow-up in their office. Infectious disease also evaluated patient and infectious disease physician recommended an additional 24 hours of IV antibiotics and discharged home on Augmentin. Patient received 3 day course of IV antibiotics with vancomycin and Unasyn. swelling of right hand significantly improving. Patient now able to touch each finger to his thumb without difficulties and reports significant improvement of pain. Pt medically stable at this time. Blood cultures x 2 sets showing no growth to date. patient stable for discharge home on Augmentin 875/125 mg tablets. Patient to complete an additional 7 days to total 10 days of antibiotic therapy for treatment of cellulitis to right hand resulting from dog bite. Patient to follow up outpatient with PCP, infectious disease, and orthopedic surgery as discussed. Physical exam: Vital signs reviewed and stable. General: Nontoxic, no distress and appears stated age. Derm: Skin warm and dry, normal coloration for ethnicity. Patient with moderate swelling of dorsal surface of right hand extending down into fingers. Head: Atraumatic, normocephalic and symmetric. Eyes: EOMs intact, no lid lag, and anicteric sclera Mouth: no lip lesions, mucus membranes moist Cardiovascular: regular rate and rhythm with normal S1S2, no murmur, positive posterior tibial pulses bilaterally, and cap refill < 2 seconds. Lungs: Respirations even, regular, and unlabored on room air. Lungs CTA bilaterally, no rhonchi, no rales, no wheezing, and no accessory muscle usage. Abdominal: soft, nontender to palpation, no guarding, no appreciable organomegaly Ext: No gross muscle atrophy, no edema, no contractures. Sensation remains intact to distal fingers. Movement of fingers remains limited secondary to reports of swelling and pain. Patient unable to make a fist or squeeze hand at this time. Patient able to bend wrist and elbow. Neuro: Speech clear, face symmetrical and CN II-XII grossly intact with no noted focal neuro deficits Psych: Alert and oriented to person, place, time, and situation. Appropriate and pleasant affect. A total of 33 minutes of time were spent preparing this complex discharge summary. Pt was discharged on 01/12/23 at 12:44 PM Patient was seen independently by Nurse Practitioner. This document was prepared using [employer] dictation software. Please allow for errors in engine mechanic while rare they do occur. I reviewed the documentation as provided by the SARIAH above, who is the original author of this note. I agree with the documented assessment and plan, with the following changes: none Patient Condition at Discharge: Stable Plan - Discharge Summary New Discharge Prescriptions: Continue Ibuprofen [Motrin] 800 mg PO Q8HR PRN #30 tab PRN Reason: Pain traMADol HCL 50 mg PO Q4-6H PRN PRN Reason: Pain Gabapentin 300 mg PO BID Dapagliflozin Propanediol [Farxiga] 10 mg PO DAILY #60 tab Spironolactone [Aldactone] 25 mg PO DAILY #30 tab Aspirin 81 mg PO DAILY #30 tab carvediloL [Coreg] 3.125 mg PO BID-W/MEALS #60 tab Furosemide [Lasix] 40 mg PO DAILY #30 tab Cholecalciferol (Vitamin D3) [Vitamin D3 (125 MCG = 5,000 IU)] 125 mcg PO DAILY Atorvastatin [Lipitor] 40 mg PO DAILY Sacubitril/Valsartan [Entresto 24 mg-26 mg Tablet] 1 tab PO BID Amoxic-Pot Clav 875-125Mg [Augmentin 875-125] 1 tab PO BID 7 Days #14 tab Discharge Medication List Aspirin 81 mg PO DAILY #30 tab 08/24/22 [Rx] Dapagliflozin Propanediol [Farxiga] 10 mg PO DAILY #60 tab 08/24/22 [Rx] Furosemide [Lasix] 40 mg PO DAILY #30 tab 08/24/22 [Rx] Spironolactone [Aldactone] 25 mg PO DAILY #30 tab 08/24/22 [Rx] carvediloL [Coreg] 3.125 mg PO BID-W/MEALS #60 tab 08/24/22 [Rx] Ibuprofen [Motrin] 800 mg PO Q8HR PRN #30 tab 01/03/23 [Rx] Atorvastatin [Lipitor] 40 mg PO DAILY 01/10/23 [History] Cholecalciferol (Vitamin D3) [Vitamin D3 (125 MCG = 5,000 IU)] 125 mcg PO DAILY 01/10/23 [History] Gabapentin 300 mg PO BID 01/10/23 [History] Sacubitril/Valsartan [Entresto 24 mg-26 mg Tablet] 1 tab PO BID 01/10/23 [History] traMADol HCL 50 mg PO Q4-6H PRN 01/10/23 [History] Amoxic-Pot Clav 875-125Mg [Augmentin 875-125] 1 tab PO BID 7 Days #14 tab 01/12/23 [Rx] Follow up Appointment(s)/Referral(s): Maverick Roper DO [Doctor of Osteopathic Medicine] - 1 Week Otis Garcia MD [Primary Care Provider] - 1-2 days Fab Cardona MD [STAFF PHYSICIAN] - 1 Week Patient Instructions/Handouts: Animal Bite (DC), Cellulitis (GEN) Activity/Diet/Wound Care/Special Instructions: Activity: As tolerated. Take breaks as needed. Diet: Heart healthy and carb consistent diet. Avoid salts, or foods with hidden salts such as canned or boxed foods and frozen dinners. Extra salt makes your heart work harder and traps the fluid in your body for longer. Special Instructions: Take all of your medications as directed and remember to keep all of your doctor's appointments and follow-up as needed. Please complete antibiotic course as prescribed. He will need to finish course with Augmentin 875/125 mg tablets every 12 hours for an additional 7 days to complete 10 day course of antibiotics. It is important to follow-up outpatient with her primary care doctor, infectious disease specialist, and orthopedic surgery team with Dr. Roper. Thank you for allowing us to participate in your care, it was truly a pleasure having you for our patient!!! Discharge Disposition: HOME SELF-CARE
--- NOTE | 2023-01-12 13:54 | P.PN ---
Subjective Progress Note Date: 01/12/23 Principal diagnosis: Right hand dog bite cellulitis Patient is a 47-year-old male presenting to the hospital with increasing swelling redness to the right hand and dorsum of the wrist in this patient who is status post dog bite by his pet dog, patient was diagnosed with a cellulitis CT was negative for any abscess. On today's evaluation and that is 01/12/2023, the patient denies having any fever or any chills, the patient right hand swelling and redness has much imp roved denies any pain no open wound or any drainage no chest pain shortness of breath or cough no abdominal pain or diarrhea Objective - Vital Signs Vital signs: Vital Signs Temp 97.7 F 01/12/23 07:00 Pulse 65 01/12/23 07:00 Resp 16 01/12/23 07:00 BP 117/75 01/12/23 07:00 Pulse Ox 95 01/12/23 07:00 FiO2 Intake & Output 01/11/23 01/12/23 01/12/23 18:59 06:59 18:59 Intake Total 118 Balance 118 Intake: Oral 118 Other: # Voids 2 1 - Exam GENERAL DESCRIPTION: Middle-aged male lying in bed in no distress RESPIRATORY SYSTEM: Unlabored breathing , decreased breath sounds at bases HEART: S1 S2 regular rate and rhythm , ABDOMEN: Soft , no tenderness EXTREMITIES: Right hand dorsum swelling has improved no redness no tenderness or drainage - Labs CBC & Chem 7: 01/09/23 23:40 01/09/23 23:40 Labs: Microbiology - Last 24 Hours (Table) 01/09/23 23:55 Blood Culture - Preliminary Blood 01/09/23 23:40 Blood Culture - Preliminary Blood Assessment and Plan (1) Cellulitis Status: Acute Code(s): L03.90 - CELLULITIS, UNSPECIFIED SNOMED Code(s): 722389008 (2) Dog bite Status: Acute Code(s): W54.0XXA - BITTEN BY DOG, INITIAL ENCOUNTER SNOMED Code(s): 013488577 Plan: 1patient presented hospital with right hand swelling and redness secondary to dog bite injury failing outpatient oral Augmentin to be more likely because of the burden of disease patient did have a CT of the right hand on 01/09/2023 with evidence of pronounced dorsal soft tissue swelling and tiny foci of subcutaneous air , with no evidence of any abscess and the patient seem to have shown clinical response to the IV Unasyn 2-patient seemed to have shown clinical improvement with IV Unasyn he will finish therapy with oral Augmentin 10 days and close outpatient follow-up Dictation was produced using [employer] software. please excuse any grammatical, word or spelling errors. Time with Patient: Less than 30
== END 2023-01-12 13:20 | disposition home or self-care (01) ==
LOC: EC 22:49 → 6NMEDSUR 23:49
PROVIDERS: ADMIT Internal Medicine; ATTEND Internal Medicine
DX: L03.113 Cellulitis of right upper limb (principal); S61.451A Open bite of right hand, initial encounter; I11.0 Hypertensive heart disease with heart failure; I50.22 Chronic systolic (congestive) heart failure; Z79.899 Other long term (current) drug therapy; I71.40 Abdominal aortic aneurysm, without rupture, unspecified; F17.210 Nicotine dependence, cigarettes, uncomplicated; Z82.49 Family history of ischemic heart disease and other diseases of the circulatory system; Z79.84 Long term (current) use of oral hypoglycemic drugs; Z79.82 Long term (current) use of aspirin
CPT/HCPCS: 96366 ×2; 96365; 96375; 99284; 80053; 85025; 87040; G0378 ×3; J0295 ×3; J1885

== ENCOUNTER → 2023-01-09 | Outpatient (CLI) | payer OTHER ==
--- NOTE | 2023-01-09 15:07 | CT ---
EXAMINATION TYPE: CT hand RT wo con DATE OF EXAM: 01/09/2023 COMPARISON: None HISTORY: 47-year-old male S61.451A, Dog bite to right hand. Swelling and redness around metacarpal ph alange area. TECHNIQUE: Contiguous axial scanning of the right hand without IV contrast. Coronal and sagittal jordan nstructions performed. 3 reconstructions generated on a dedicated workstation. CT DLP: 176.7 mGycm Automated exposure control for dose reduction was used. FINDINGS: Slightly prominent scapholunate interval estimated at 3 mm. Recommend radiographic assessment to excl ude abnormal widening here. Correlate for any localizing symptoms that would indicate a sprain or inj ury of the scapholunate ligament. The radiocarpal and distal radioulnar joint appear intact. Sclerotic focus compatible with bone island within the distal pole of the scaphoid. Mild to moderate degenerative change first CMC joint with joint space narrowing and marginal spurring . No acute fracture, subluxation, or dislocation. Prominent dorsal soft tissue swelling as well as scattered foci of subcutaneous air extending from th e level of the carpus to the proximal phalanges. Lesser degree of subcutaneous soft tissue swelling along the palm of the hand. IMPRESSION: 1. PRONOUNCED DORSAL SOFT TISSUE SWELLING EXTENDING FROM THE LEVEL OF THE CARPUS TO THE PROXIMAL PHAL ANGES WITH A FEW TINY FOCI OF SUBCUTANEOUS AIR. THE AIR MAY BE SECONDARY TO PUNCTURE WOUNDS. CORRELAT E TO EXCLUDE SEVERE CELLULITIS AND INFECTION WITH GAS-FORMING ORGANISM. 2. LESSER DEGREE OF PALMAR SIDED SUBCUTANEOUS SOFT TISSUE SWELLING. 3. NO UNDERLYING ACUTE OSSEOUS ABNORMALITY SEEN. 4. QUESTIONABLE WIDENING OF THE SCAPHOLUNATE INTERVAL. THIS CAN BE BETTER ASSESSED WITH AP AND NAVICU LAR VIEWS OF THE WRIST.
== END | disposition home or self-care (01) ==
LOC: RADCTMAIN 14:26
PROVIDERS: ATTEND Family Medicine
DX: S61.451A Open bite of right hand, initial encounter (principal); W54.0XXA Bitten by dog, initial encounter; M79.89 Other specified soft tissue disorders

== ENCOUNTER → 2023-01-15 | Outpatient (CLI) | payer OTHER ==
[2023-01-15 22:26] LABS: Chol/HDL Ratio 3.37 Ratio; LDL Cholesterol,Calculated 52.5 mg/dL (0.0-131.0)
== END | disposition home or self-care (01) ==
LOC: LABWHC1 14:10
PROVIDERS: ATTEND Family Medicine
DX: Z12.5 Encounter for screening for malignant neoplasm of prostate (principal); E78.5 Hyperlipidemia, unspecified
CPT/HCPCS: 36415; 80061; 84153

== ENCOUNTER → 2023-04-08 | Outpatient (CLI) | payer OTHER ==
[2023-04-08 12:38] LABS: NT-Pro-B-Type Natriuretic Pept 68 pg/mL
[2023-04-08 12:46] LABS: ALT 27 U/L (4-49); AST 23 U/L (17-59); African American GFR (CKD) >90 (>60 ml/min/1.73 sqM); Albumin 4.4 g/dL (3.5-5.0); Albumin/Globulin Ratio 1.8; Alkaline Phosphatase 57 U/L (38-126); Anion Gap 10 mmol/L; Blood Urea Nitrogen 22 mg/dL (9-20); Calcium 9.5 mg/dL (8.4-10.2); Carbon Dioxide 25 mmol/L (22-30); Chloride 106 mmol/L (98-107); Globulin 2.5 g/dL; Glucose 106 mg/dL (74-99); Non-African American GFR(CKD) 90 (>60 ml/min/1.73 sqM); Potassium 4.7 mmol/L (3.5-5.1); Sodium 141 mmol/L (137-145); Total Protein 6.9 g/dL (6.3-8.2)
[2023-04-08 16:28] LABS: Chol/HDL Ratio 2.91 Ratio; LDL Cholesterol,Calculated 53.8 mg/dL (0.0-131.0); VLDL Calculation 14.38 mg/dL (5.00-40.00)
== END | disposition home or self-care (01) ==
LOC: LABWHC1 10:23
PROVIDERS: ATTEND Internal Medicine Interventional Cardiology
DX: I10 Essential (primary) hypertension (principal); I42.8 Other cardiomyopathies; E78.2 Mixed hyperlipidemia
CPT/HCPCS: 36415; 80053; 80061; 83036; 83880

== ENCOUNTER → 2023-09-11 | Outpatient (CLI) | payer OTHER ==
--- NOTE | 2023-09-16 17:57 | CT ---
EXAMINATION TYPE: CT chest wo con CT DLP: 680.7 mGycm, Automated exposure control for dose reduction was used. DATE OF EXAM: 09/11/2023 8:52 AM COMPARISON: CT angiogram 09/05/2019 CLINICAL INDICATION:Male, 48 years old with history of I71.20 THORACIC AORTIC ANEURYSM; PHH, thoraci c aneurysm TECHNIQUE: Multiple axial images were obtained through the chest. Sagittal and coronal reformats were created for review. Contrast used: mL of (None if empty) Oral contrast used: (None if empty) FINDINGS: LUNGS/ PLEURA: The lung parenchyma appears unremarkable. AIRWAY: Patent and unremarkable. HEART: The heart appears mildly enlarged.. Heart size is stable. MEDIASTINUM: No gross evidence of adenopathy. VASCULATURE: Thoracic aortic aneurysm measured today at 41 mm and previously measured 45 mm. MUSCULOSKELETAL: No acute osseous abnormalities. Bilateral gynecomastia. SOFT TISSUES/LYMPH NODES: Unremarkable. LOWER NECK: No significant findings. UPPER ABDOMEN: No significant findings. IMPRESSION: Suspect stable size of ascending thoracic aortic aneurysm at 41 mm, even though there are small diffe rence in measurements.
== END | disposition home or self-care (01) ==
LOC: RADCTMAIN 07:32
PROVIDERS: ATTEND Surgery
DX: I71.20 Thoracic aortic aneurysm, without rupture, unspecified (principal)
CPT/HCPCS: 71250

== ENCOUNTER → 2023-11-19 | Outpatient (CLI) | payer OTHER ==
[2023-11-19 15:36] LABS: ALT 29 U/L (10-49); AST 21 U/L (14-35); Albumin 4.5 g/dL (3.8-4.9); Albumin/Globulin Ratio 1.96 Ratio (1.60-3.17); Alkaline Phosphatase 125 U/L (41-126); BUN/Creat Ratio 10.55 Ratio (12.00-20.00); Blood Urea Nitrogen 11.6 mg/dL (9.0-27.0); Calcium 9.5 mg/dL (8.7-10.3); Carbon Dioxide 22.2 mmol/L (21.6-31.8); Chloride 104 mmol/L (96-109); Globulin 2.3 g/dL (1.6-3.3); Glucose 130 mg/dL (70-110); LDL Cholesterol,Calculated 56.3 mg/dL (0.0-131.0); Potassium 4.4 mmol/L (3.5-5.5); Sodium 141 mmol/L (135-145); Total Bilirubin 0.4 mg/dL (0.3-1.2); Total Protein 6.8 g/dL (6.2-8.2)
[2023-11-19 15:42] LABS: NT-Pro-B-Type Natriuretic Pept 154 pg/mL (0-125)
== END | disposition home or self-care (01) ==
LOC: LABWHC1 10:50
PROVIDERS: ATTEND Internal Medicine Interventional Cardiology
DX: E78.2 Mixed hyperlipidemia (principal); I42.8 Other cardiomyopathies
CPT/HCPCS: 36415; 80053; 80061; 83880

== ENCOUNTER → 2024-09-17 | Outpatient (CLI) | payer OTHER ==
--- NOTE | 2024-09-17 10:10 | CT ---
EXAMINATION TYPE: CT angio chest DATE OF EXAM: 09/17/2024 9:04 AM COMPARISON: 09/11/2023 CLINICAL INDICATION: Male, 49 years old with history of I17.2 THORACIC AORTIC ANEURYSM TECHNIQUE/CONTRAST: CTA scan of the thorax is performed without and with IV Contrast, patient injected with 100 ml of Iso vicenta 370, 3-D reconstructions generated on a dedicated workstation. CT DLP: 1410.50 mGycm, Automated exposure control for dose reduction was used. FINDINGS: The heart is borderline enlarged without pericardial effusion. No significant coronary artery calcifi cations are seen. The aortic root is ectatic at 3.9 cm, unchanged. Ascending aorta aneurysmal at 4.7 cm versus 4.6 cm, previously. Conventional vessel branching anatomy. Ectatic upper descending thoracic aorta 3.2 cm is unchanged. Initial noncontrast images show no evidence for acute intracranial hematoma. No evidence for aortic d issection. There is moderate bilateral gynecomastia. No thoracic lymphadenopathy by CT size criteria. No large c entral pulmonary embolus is seen. Mild diffuse bronchial wall thickening may reflect bronchitis or asthma. No consolidation or pleural effusion. Visualized upper abdominal aorta suggests a tiny hiatal hernia. No osseous destructive process. Some anterior plate spondylosis lower thoracic spine and scattered mi ld degenerative disc disease. IMPRESSION: 1. Aneurysmal ascending aorta 4.7 cm versus 4.6 cm, previously. 2. Mild diffuse bronchial wall thickening may reflect bronchitis or asthma. [facility], , 09/17/2024 10:07 AM
== END | disposition home or self-care (01) ==
LOC: RADCTMAIN 07:51
PROVIDERS: ATTEND Surgery
DX: I71.20 Thoracic aortic aneurysm, without rupture, unspecified (principal); J98.09 Other diseases of bronchus, not elsewhere classified
CPT/HCPCS: 71275; Q9967